=== PATIENT | female | born 1990 | race Caucasian/White ===

== ENCOUNTER 2020-01-04 23:29 | Emergency (ER) | payer SELFPAY ==
--- NOTE | ~2020-01-04 | XR_ITS ---
EXAMINATION: XR chest 2V EXAM DATE: 01/05/2020 01:01 INDICATION: Left rib pain. TECHNIQUE: Frontal and lateral projections of the chest obtained and reviewed. There is no prior charity dy for comparison. FINDINGS: The lungs are clear. There are no pleural effusions. The cardiomediastinal silhouette is within normal limits. There is no pneumothorax suspected. The bones and soft tissues are unremarkab le. IMPRESSION: Normal chest x-ray exam. Reviewed, dictated and finalized at location A. IMPRESSION: Normal chest x-ray exam.
--- NOTE | ~2020-01-04 | CT_ITS ---
EXAMINATION: CT abdomen pelvis w con INDICATION: Left flank pain TECHNIQUE: Computed tomographic images of the abdomen and pelvis were obtained after the administrati on of 100 cc of Omnipaque 350 intravenous contrast. The dose-length product (DLP) was 643.98 mGy-cm. Automated exposure control and iterative reconstruction technique were employed. COMPARISON: None available FINDINGS: The lung bases are clear. The heart size is normal. The gallbladder is surgically absent. T he liver, spleen, pancreas, and adrenal glands are normal. The kidneys are unremarkable. No stones ar e identified in the kidneys, ureters, or bladder. There is no hydronephrosis or hydroureter. No patho logically enlarged abdominal or pelvic lymph nodes are identified. There is no free intraperitoneal g as or evidence of bowel obstruction. The appendix is normal. The IUD is within the endocervical canal . IMPRESSION: 1. No CT correlate for the patient's symptoms. 2. Malpositioned IUD in the endocervical canal. Reviewed, dictated and finalized at location B.
[2020-01-04 23:36] VITALS: BP 123/93; PULSE 91; RESP 19; TEMP 37; O2SAT 98
--- NOTE | 2020-01-05 | ED.GENADULT ---
HPI - General Adult General Chief complaint: Unspecified Stated complaint: rib pain Time Seen by Provider: 01/04/20 23:32 Source: patient Mode of arrival: EMS Limitations: no limitations History of Present Illness HPI narrative: This patient is a 29 year old female who presents for evaluation of left rib pain. Patient reports pain starting 2 days ago. She reports pain that is intermittent and sharp. She reports this pain occurs with breathing in. She states she called EMS because while she was day she developed severe sharp pain and it caused a panic attack. She reports she developed tingling all over her whole body and she reports a terrible taste in her mouth. She has not taken anything for pain. She denies any trauma. Related Data Allergies Allergy/AdvReac Type Severity Reaction Status Date / Time Penicillins Allergy Mild Hives / Verified 01/04/20 23:56 Red Face Review of Systems Review of Systems: All systems reviewed & are unremarkable except as noted in HPI and below Constitutional: Constitutional: Denies chills and Denies fever(s) ENT: Denies sore throat Cardiovascular: Cardiovascular: Denies chest pain Respiratory: Respiratory: Denies cough, Denies dyspnea and Denies wheezing Gastrointestinal: Gastrointestinal: Denies nausea and Denies vomiting Genitourinary: Genitourinary: Reports flank pain Neurologic: Reports numbness (all over whole body) [facility] Past Medical History Medical History (Updated 01/05/20 @ 02:17 by Mini Rodgers MD) Patient denies medical problems Surgical History Surgical History (Updated 01/05/20 @ 00:01 by Mini Rodgers MD) H/O knee surgery Social History Social History (Updated 01/05/20 @ 00:01 by Mini Rodgers MD) Smoking packs per day: 0.5 Smoking cigarettes per day: 10.0 Smoking status: Current every day smoker Gender identity (if verbalized by the patient): Female Exam Narrative: Exam Narrative: GENERAL: Well-appearing, well-nourished, and in no acute distress. HEAD: Normocephalic, atraumatic EYES: PERRLA and EOMI, conjunctiva clear without discharge EARS: TM's clear bilaterally without erythema or dullness NOSE: Nares clear, no rhinorrhea or epistaxis THROAT:Mucous membranes moist, Oropharynx normal without erythema, exudate, peritonsillar swelling or fluctuance NECK: Supple, without lymphadenopathy or mass RESPIRATORY: No respiratory distress, Airway patent, Respirations non-labored, Clear to auscultation without rales, rhonchi or wheeze HEART: Regular rate and rhythm. No murmur heard. Normal peripheral pulses. ABDOMEN: Soft, LUQ tenderness, nondistended, normal active bowel sounds. No masses. No rebound or guarding, No organomegaly. left CVA tenderness EXTREMITIES: No edema, normal strength with full range of motion. SKIN: Warm, dry, normal color without rash NEURO: Alert and oriented x3. CN 2-12 grossly intact. No focal deficits. PSYCH: Normal mood and affect. : Speculum Exam - Vagina: abnormal vaginal discharge yellow Speculum Exam - Cervix: normal appearance of the cervix Bimanual exam- vagina & uterus: no cervical motion tenderness Other: iud string seen Course Vital Signs Vital signs: Vital Signs Temperature 98.6 F 01/04/20 23:36 Pulse Rate 91 01/04/20 23:36 Respiratory Rate 19 01/04/20 23:36 Blood Pressure 123/93 H 01/04/20 23:36 Pulse Oximetry 98 01/04/20 23:36 Temperature 98.6 F 01/04/20 23:36 Pulse Rate 80 01/05/20 02:54 Respiratory Rate 18 01/05/20 02:54 Blood Pressure 116/79 01/05/20 02:54 Pulse Oximetry 98 01/05/20 02:54 Medical Decision Making Vital Signs Vital Signs: Vital Signs Temperature 98.6 F 01/04/20 23:36 Pulse Rate 91 01/04/20 23:36 Respiratory Rate 19 01/04/20 23:36 Blood Pressure 123/93 H 01/04/20 23:36 Pulse Oximetry 98 01/04/20 23:36 Temperature 98.6 F 01/04/20 23:36 Pulse Rate 80 01/05/20 02:54 Respira
[2020-01-05] MEDS: KETOROLAC 30 MG/ML VIAL (*BKC) IV PUSH (00:03)
[2020-01-05 00:18] LABS: Basophils Absolute Auto 0.1 K/mm3 (0.0-0.1); Basophils Percent Auto 0.8 % (0.2-1.2); Eosinophils Percent Auto 0.1 % (0-4.4); Hemoglobin 12.9 g/dL (12.0-15.0); Immature Granulocyte Absolute 0.02 K/mm3 (0.00-0.031); Immature Granulocyte Percent A 0.2 % (0-0.5); Mean Corpuscular HGB Conc 32.3 g/dl (32-36); Mean Corpuscular Hemoglobin 26.6 pg (26-34); Mean Corpuscular Volume 82.5 fl (80-100); Mean Platelet Volume 8.6 fl (7.4-10.4); Monocytes Absolute Auto 0.6 K/mm3 (0.1-0.6); Neutrophils Absolute Auto 4.5 K/mm3 (1.3-6.7); Neutrophils Percent Auto 53.9 % (45.5-73.1); Platelet Count Result 407 k/mm3 (150-375); Red Blood Count 4.85 M/mm3 (4.2-5.4); White Blood Count 8.4 K/mm3 (4.5-10.0)
[2020-01-05 00:18] LABS: Bacteria Urine Trace /hpf; Mucus Urine Rare /lpf; Squamous Epithelial Cell Urine Few /hpf (Few); WBC Urine 0-3 /hpf
[2020-01-05 00:25] LABS: INR 0.9; Prothrombin Time 11.9 Seconds (11.1-14.7)
[2020-01-05 00:26] LABS: Partial Thromboplastin Time 29.6 SECONDS (22.3-36.8)
[2020-01-05 00:27] LABS: Alanine Aminotransferase 26 U/L (4-35); Albumin Level 4.4 g/dL (3.5-5.1); Alkaline Phosphatase 69 U/L (38-126); Anion Gap 14.9 mmol/L (7-16); Aspartate Amino Transferase 26 U/L (14-36); Bilirubin,Total 0.4 mg/dL (0.2-1.3); Blood Urea Nitrogen 10 mg/dL (7-17); Calcium 8.4 mg/dL (8.4-10.2); Carbon Dioxide 22 mmol/L (22-30); Chloride 104 mmol/L (98-107); Estimated Glomerular Filt Rate > 60; Glucose 90 mg/dL (65-105); Lipase 131 U/L (23-300); Potassium 3.9 mmol/L (3.4-5.0); Sodium 137 mmol/L (137-145)
[2020-01-05 00:28] LABS: D Dimer 0.31 ug/mL (<0.48)
--- NOTE | 2020-01-05 00:34 | ECG_ITS ---
Measurements Intervals [place] Rate: 82 P: 11 AL: 126 QRS: 36 QRSD: 81 T: 18 QT: 369 QTc: 431 Interpretive Statements SINUS RHYTHM BASELINE ARTIFACT- II, III, AVF, V6 NORMAL ECG Electronically Signed On 01-05-2020 7:21:49 CDT by Nick Claros D.O.
[2020-01-05 00:37] LABS: Appearance Urine Clear (Clear); Color Urine Light Yellow (Yellow)
[2020-01-05 00:38] LABS: Protein Urine Negative (Negative); Specific Grav Ur 1.015 (1.001-1.035)
[2020-01-05 00:39] LABS: Troponin I < 0.012 ng/mL (0.000-0.034)
[2020-01-05 00:39] LABS: Blood Urine Negative (Negative); Glucose Urine UA Negative (Negative); Ketones Urine Negative (Negative)
[2020-01-05 00:40] LABS: Add Urine Microscopic? NO; Bilirubin Urine Negative (Negative); Leukocyte Esterase Ur Negative LEU/UL (Negative); Nitrate Urine Negative (Negative); Urobilinogen Urine 0.2 mg/dL (<2.0)
[2020-01-05] MEDS: ONDANSETRON INJ 4 MG/2 ML VIAL IV PUSH (01:52)
[2020-01-05] MEDS: MORPHINE SULFATE 4 MG/ML INJ IV PUSH (01:52)
[2020-01-05 02:00] VITALS: BP 112/82; PULSE 87; RESP 18; O2SAT 97
[2020-01-05] MEDS: AZITHROMYCIN 250 MG TABLET 2000 MG PO (02:44)
[2020-01-05 02:54] VITALS: BP 116/79; PULSE 80; RESP 18; O2SAT 98
== END 2020-01-05 02:59 | disposition home or self-care (01) ==
PROVIDERS: Emergency Provider General Practice
DX: R10.9 Unspecified abdominal pain (principal); N89.8 Other specified noninflammatory disorders of vagina; Z97.5 Presence of (intrauterine) contraceptive device; F17.210 Nicotine dependence, cigarettes, uncomplicated
CPT/HCPCS: 36415; 71046; 74177; 80053; 81003; 81025; 83690; 84484; 85025; 85380; 85610; 85730; 87070; 87491; 87591; 87808; 93005; 96374; 96375; 99284; A9270; J1885; J2270; J2405; Q9967

== ENCOUNTER 2020-03-06 17:40 | Emergency (ER) | payer SELFPAY ==
--- NOTE | ~2020-03-06 | XR_ITS ---
EXAMINATION: XR chest 2V DATE: 03/06/2020 18:51 INDICATION: Left-sided chest pain. Body numbness. TECHNIQUE: PA and lateral views of the chest were obtained. COMPARISON: Chest radiograph dated 01/05/2020 FINDINGS: The lungs remain clear with no focal airspace opacities, pulmonary edema, pleural effusion or pneumot horax. The cardiomediastinal silhouette is normal. Cholecystectomy clips in the right upper quadrant. Mild thoracic spondylosis. IMPRESSION: 1. No acute cardiopulmonary disease. Reviewed, dictated and finalized at location A.
--- NOTE | ~2020-03-06 | CT_ITS ---
EXAMINATION: CT brain wo con DATE: 03/06/2020 22:57 INDICATION: Dizziness. Numbness to the body. TECHNIQUE: Computed tomography (CT) of the head was performed without intravenous contrast. Sagittal and coronal reconstructions were performed. The mA was adjusted according to patient size. Iterative reconstruction technique was employed. The dose-length product was 605.33 mGy-cm. COMPARISON: None FINDINGS: No acute intracranial hemorrhage, acute infarction or abnormal extra axial fluid collection. Ventricl es are normal and symmetric. No mass/mass effect. Very small right mastoid effusion. The orbits, para nasal sinuses and left mastoid air cells are normal. IMPRESSION: 1. Normal brain. No acute intracranial process. Reviewed, dictated and finalized at location A.
--- NOTE | 2020-03-06 17:47 | ECG_ITS ---
Measurements Intervals [place] Rate: 75 P: 25 SC: 131 QRS: 26 QRSD: 81 T: 29 QT: 360 QTc: 405 Interpretive Statements SINUS RHYTHM BASELINE ARTIFACT- I, III, V4-V5 NORMAL ECG Electronically Signed On 03-07-2020 6:37:19 CDT by Nick Claros D.O.
[2020-03-06 17:48] VITALS: BP 135/72; PULSE 80; RESP 20; TEMP 37.6; O2SAT 99
[2020-03-06 18:09] LABS: Basophils Percent Auto 0.4 % (0.2-1.2); Hematocrit 39.2 % (37.0-47.0); Hemoglobin 12.7 g/dL (12.0-15.0); Immature Granulocyte Absolute 0.03 K/mm3 (0.00-0.031); Immature Granulocyte Percent A 0.3 % (0-0.5); Lymphocytes Absolute Auto 2.09 K/mm3 (0.9-3.2); Lymphocytes Percent Auto 22.3 % (18.3-44.2); Mean Corpuscular HGB Conc 32.4 g/dl (32-36); Mean Corpuscular Hemoglobin 27.8 pg (26-34); Mean Corpuscular Volume 85.8 fl (80-100); Monocytes Absolute Auto 0.7 K/mm3 (0.1-0.6); Monocytes Percent Auto 7.2 % (2.6-8.5); Neutrophils Absolute Auto 6.6 K/mm3 (1.3-6.7); Neutrophils Percent Auto 69.8 % (45.5-73.1); Platelet Count Result 370 k/mm3 (150-375); Red Blood Count 4.57 M/mm3 (4.2-5.4); Red Cell Distribution Width 14.3 % (11.5-14.5); White Blood Count 9.4 K/mm3 (4.5-10.0)
[2020-03-06 18:15] LABS: Anion Gap 11 mmol/L (8-16); Blood Urea Nitrogen 16 mg/dL (7-17); Calcium 9.3 mg/dL (8.4-10.2); Carbon Dioxide 23 mmol/L (22-30); Chloride 104 mmol/L (98-107); Estimated CRCL calculation 106 ml/min; Estimated Glomerular Filt Rate > 60; Glucose 98 mg/dL (65-105); Potassium 3.9 mmol/L (3.4-5.0); Sodium 138 mmol/L (137-145)
[2020-03-06 18:26] LABS: Partial Thromboplastin Time 29.6 SECONDS (22.3-36.8)
[2020-03-06 18:28] LABS: Troponin I < 0.012 ng/mL (0.000-0.034)
[2020-03-06 18:29] LABS: Prothrombin Time 12.4 Seconds (11.1-14.7)
[2020-03-06 21:00] VITALS: BP 124/92; PULSE 71; RESP 16; O2SAT 100
[2020-03-06] MEDS: MECLIZINE HCL 25 MG TABLET PO (21:07)
[2020-03-06 21:36] LABS: Troponin I < 0.012 ng/mL (0.000-0.034)
[2020-03-06 22:00] VITALS: BP 117/54; PULSE 61; RESP 18; O2SAT 99
--- NOTE | 2020-03-06 22:28 | ED.GENADULT ---
HPI - General Adult General Chief complaint: Chest Pain Stated complaint: left sided chest pain Time Seen by Provider: 03/06/20 20:45 History of Present Illness HPI narrative: Patient presented to triage complaining of chest pain. She reports that was very brief and central and radiated down towards her abdomen. Occurred earlier this evening. However her main concern concern today is that she has been having dizziness for last 2 to 3 days. Is worse when she lays down backwards. She feels/hears a gambino in her head, she will then become tingly across her body and occasionally feels nauseated. She also feels like things are moving. She had no sinus congestion or sore throat. No productive cough. No tinnitus or loss of hearing. No focal weakness or numbness in arm or leg. Symptoms do cause patient some anxiety. Related Data Allergies Allergy/AdvReac Type Severity Reaction Status Date / Time Penicillins Allergy Mild Hives / Verified 03/06/20 21:11 Red Face Review of Systems Review of Systems: All systems reviewed & are unremarkable except as noted in HPI and below Constitutional: Constitutional: Denies chills, Denies fever(s) and Denies weakness Eyes: Eyes: Denies change in vision and Denies photophobia ENT: Reports dizziness, Denies nasal congestion and Denies sore throat Cardiovascular: Cardiovascular: Reports chest pain, Denies rapid heart rate and Denies radiating jaw, neck or arm pain Respiratory: Respiratory: Denies cough, Denies dyspnea and Denies wheezing Gastrointestinal: Gastrointestinal: Denies abdominal pain, Denies diarrhea, Reports nausea and Denies vomiting Genitourinary: Genitourinary: Denies abnormal vaginal bleeding, Denies nocturia, Denies dysuria and Denies vaginal discharge PMFSH Past Medical History Medical History (Updated 03/06/20 @ 23:35 by Rk Antonio MD) Patient denies medical problems Surgical History Surgical History (Updated 01/05/20 @ 00:01 by Mini Rodgers MD) H/O knee surgery Social History Social History (Updated 01/05/20 @ 00:01 by Mini Rodgers MD) Smoking packs per day: 0.5 Smoking cigarettes per day: 10.0 Smoking status: Current every day smoker Gender identity (if verbalized by the patient): Female Exam Narrative: Exam Narrative: GENERAL: Well-appearing, well-nourished, and in no acute distress. HEAD: Normocephalic, atraumatic. EYES: PERRLA and EOMI. ENT: TMs normal appearance bilaterally with exception of myringotomy scars. Mucous membranes moist. Old bruising around the jaw bilaterally. CHEST: Clear to auscultation. No respiratory distress. HEART: Regular rate and rhythm. Normal peripheral pulses. ABDOMEN: Soft, nontender, nondistended. EXTREMITIES: Normal range of motion. No edema. SKIN: Warm, dry, no rash. NEURO: No focal deficits. No sharp touch deficit. Alert and oriented x3. Course Course Emergency Course: Patient feels much better with meclizine. Discharge home. CT scan unremarkable. Vital Signs Vital signs: Vital Signs Temperature 99.6 F 03/06/20 17:48 Pulse Rate 80 03/06/20 17:48 Respiratory Rate 20 03/06/20 17:48 Blood Pressure 135/72 03/06/20 17:48 Pulse Oximetry 99 03/06/20 17:48 Temperature 99.6 F 03/06/20 17:48 Pulse Rate 71 03/06/20 21:00 Respiratory Rate 16 03/06/20 21:00 Blood Pressure 124/92 H 03/06/20 21:00 Pulse Oximetry 100 03/06/20 21:00 Medical Decision Making Vital Signs Vital Signs: Vital Signs Temperature 99.6 F 03/06/20 17:48 Pulse Rate 80 03/06/20 17:48 Respiratory Rate 20 03/06/20 17:48 Blood Pressure 135/72 03/06/20 17:48 Pulse Oximetry 99 03/06/20 17:48 Temperature 99.6 F 03/06/20 17:48 Pulse Rate 71 03/06/20 21:00 Respiratory Rate 16 03/06/20 21:00 Blood Pressure 124/92 H 03/06/20 21:00 Pulse Oximetry 100 03/06/20 21:00 Lab Data Result diagrams: 03/06/20 17:55 03/06/20 17:55 L
[2020-03-06 23:30] VITALS: BP 113/83; PULSE 70; RESP 17; O2SAT 100
== END 2020-03-06 23:45 | disposition home or self-care (01) ==
PROVIDERS: Emergency Medicine; Emergency Provider Emergency Medicine
DX: R42 Dizziness and giddiness (principal); F17.210 Nicotine dependence, cigarettes, uncomplicated
CPT/HCPCS: 36415; 70450; 71046; 80048; 84484; 85025; 85610; 85730; 93005; 99284; A9270

== ENCOUNTER 2021-02-20 17:19 | Emergency (ER) | payer MEDICAID, SELFPAY ==
[2021-02-20 17:29] VITALS: BP 128/85; PULSE 96; RESP 16; TEMP 36.9; O2SAT 99
--- NOTE | 2021-02-20 18:21 | ED.DENTAL ---
HPI - Dental/Oral General Chief complaint: Dental/Oral Stated complaint: severe tooth pain Time Seen by Provider: 02/20/21 18:10 Source: patient and RN notes reviewed Mode of arrival: ambulatory Limitations: no limitations History of Present Illness HPI Narrative: Patient presents today complaining of left upper dental pain x2 days, worse today. Associated symptoms include headache. She has an appointment in 1-1/2 months with her dentist. Denies fever, shortness of breath, difficulty swallowing. She has tried Tylenol, ibuprofen, salt water rinses, and other home remedies without relief. No recent antibiotic use. MD Complaint: tooth pain Related Data Allergies Allergy/AdvReac Type Severity Reaction Status Date / Time Penicillins Allergy Mild Hives / Verified 02/20/21 17:47 Red Face amoxicillin Allergy Rash Verified 02/20/21 17:47 Review of Systems Review of Systems: CONSTITUTIONAL: Denies body aches, fever, chills, or sweats. EYES: Denies visual changes, redness, or discharge. ENT: Denies rhinorrhea, congestion, sore throat, or otalgia.+ Tooth pain CARDIOVASCULAR: Denies chest pain, palpitations, or edema. RESPIRATORY: Denies cough or dyspnea. GASTROINTESTINAL: Denies abdominal pain, nausea, vomiting, or diarrhea. GENITOURINARY: Denies dysuria or hematuria. SKIN: Denies rash, itching, or wounds. MUSCULOSKELETAL: Denies back pain, joint pain, or myalgia. NEUROLOGIC: Denies headache, numbness, tingling, or weakness. PSYCH: Denies depression or anxiety. [facility] Past Medical History Medical History Patient denies medical problems Surgical History Surgical History H/O knee surgery Social History Social History Smoking packs per day: 0.5 Smoking cigarettes per day: 10.0 Smoking status: Current every day smoker Gender identity (if verbalized by the patient): Female Comments At time of signature, I have reviewed and agree with nursing past medical, surgical, social and family history unless otherwise noted. Please see nursing chart for further information. There is no relevant family history pertinent to the presenting complaint Exam Narrative: GENERAL: Well-appearing, well-nourished, and in no acute distress. HEAD: Normocephalic, atraumatic. EYES: EOMI. No redness or drainage. Conjunctivae normal. ENT: Mucous membranes pink and moist. Nares clear. No rhinorrhea. TMs normal bilaterally. Throat normal. Uvula midline. Patient has a cavity on the lateral portion of tooth #16. No obvious periapical abscess. Tender to palpation. No facial swelling noted. NECK: Normal AROM. Supple. No lymphadenopathy. CHEST: No respiratory distress. Clear to auscultation. HEART: Regular rate and rhythm. No murmur appreciated. Normal peripheral pulses. EXTREMITIES: Normal range of motion. No edema. SKIN: Warm, dry, no rash. Capillary refill normal. Normal skin turgor. NEURO: No focal deficits. Alert and oriented x3. Gait steady. PSYCH: Normal affect. No signs of depression or anxiety. Course Vital Signs Vital signs: Vital Signs Temperature 98.5 F 02/20/21 17:29 Pulse Rate 96 02/20/21 17:29 Respiratory Rate 16 02/20/21 17:29 Blood Pressure 128/85 02/20/21 17:29 Pulse Oximetry 99 02/20/21 17:29 Temperature 98.5 F 02/20/21 17:29 Pulse Rate 96 02/20/21 17:29 Respiratory Rate 16 02/20/21 17:29 Blood Pressure 128/85 02/20/21 17:29 Pulse Oximetry 99 02/20/21 17:29 Reviewed. Pt has been instructed to follow up with her PCP regarding her elevated blood pressure today. MDM - Dental/Oral Differential Diagnosis Differential diagnosis: Likely gingival abscess, dental caries, toothache, dental abscess and fracture of tooth Critical Care Time Critical Care Time Critical Care Time: No Discharge Plan
== END 2021-02-20 18:38 | disposition home or self-care (01) ==
PROVIDERS: Emergency Provider Nurse Practitioner
DX: K02.9 Dental caries, unspecified (principal); F17.210 Nicotine dependence, cigarettes, uncomplicated
CPT/HCPCS: 99213; G0463

== ENCOUNTER 2021-08-11 12:51 | Emergency (ER) | payer OTHER, SELFPAY ==
[2021-08-11 13:09] VITALS: BP 130/90; PULSE 77; RESP 16; TEMP 36.9; O2SAT 99
--- NOTE | 2021-08-11 13:22 | ED.DENTAL ---
HPI - Dental/Oral General Chief complaint: Dental/Oral Stated complaint: Tooth Pain Time Seen by Provider: 08/11/21 13:22 Source: patient, RN notes reviewed and old records reviewed Mode of arrival: ambulatory Limitations: no limitations History of Present Illness HPI Narrative: 30-year-old female presents to the [facility] with dental pain. Had similar approximately 1 year ago. No treatment prior to arrival. States that she has been looking for a dental provider but they are too expensive. MD Complaint: tooth pain Related Data Allergies Allergy/AdvReac Type Severity Reaction Status Date / Time Penicillins Allergy Mild Hives / Verified 08/11/21 13:13 Red Face amoxicillin Allergy Rash Verified 08/11/21 13:13 Review of Systems Review of Systems: All systems reviewed & are unremarkable except as noted in HPI and below Constitutional: Constitutional: Reports no additional constitutional complaints, Denies chills and Denies fever(s) Eyes: Eyes: Reports no additional eye complaints ENT: Reports as per HPI Comments: Dental pain Cardiovascular: Cardiovascular: Reports no additional cardiovascular complaints, Denies chest pain and Denies dyspnea Respiratory: Respiratory: Reports no additional respiratory complaints, Denies cough and Denies dyspnea Musculoskeletal: Musculoskeletal: Reports no additional musculoskeletal complaints Integumentary/Breasts: Skin/Breast: Reports system reviewed and no additional complaints, except as docu Neurologic: Reports system reviewed and no additional complaints, except as documented Psychiatric: Psychiatric: Reports no additional psychiatric complaints Allergic/Immunologic: Allergic/Immunologic: Reports no additional allergic/immunologic complaints PMFSH Past Medical History Medical History Patient denies medical problems Surgical History Surgical History H/O knee surgery Social History Social History Smoking packs per day: 0.5 Smoking cigarettes per day: 10.0 Smoking status: Current every day smoker Gender identity (if verbalized by the patient): Female Comments At the time of my signature, I reviewed and agree with the nursing past medical, surgical, social, and family history. There is no relevant family history pertinent to the patient complaint. Exam Const: General: healthy appearing, no acute distress and alert Nutritional Appearance: well nourished and obese Orientation/consciousness: patient oriented x3 Limitations: no limitations HENMT: Head: normal to inspection Ears: external ears normal, TM's normal bilaterally and EAC's normal General nose exam: Normal external nose present and Normal nasal mucous membranes and turbinates present Face and sinus: normal facial exam Mouth: Yes Normal oral and palatal mucosa present Teeth and gingiva: poor dentition Teeth image: 1. Dental caries noted 2. Surrounding gingiva red, swollen, fractured tooth with decay. 3. Decay with surrounding gingiva erythematous, swollen, tender to palpation Throat: posterior oropharynx normal, tonsils normal and uvula midline Eyes: Conjunctivae: conjunctivae normal Pupils: Equal, round and reactive pupils present Neck: Neck: normal visual inspection, no lymphadenopathy and no meningeal signs Chest: Chest palpation & inspection: normal inspection of the chest Resp: Effort & Inspection: normal respiratory effort Auscultation: clear to auscultation bilaterally Cardio: Rate: regular rate Rhythm: regular rhythm Skin: General skin exam: normal color Rashes: no rashes Wounds: no wounds Neuro: General: patient oriented x3, moves all extremities, no meningeal signs and no focal motor deficits Cranial nerves: Yes Equal, round and reactive pupils present Speech: normal speech Gait exam (Neuro): Normal gait
== END 2021-08-11 13:38 | disposition home or self-care (01) ==
PROVIDERS: Emergency Provider Nurse Practitioner
DX: K02.9 Dental caries, unspecified (principal); K04.7 Periapical abscess without sinus; F17.210 Nicotine dependence, cigarettes, uncomplicated
CPT/HCPCS: 99213; G0463